=== PATIENT | male | born 1965 | race African-American/Black ===

== ENCOUNTER 2021-03-05 00:20 | Emergency (ER) | payer MEDICAID ==
[~2021-03-05] VITALS: Ht 193 cm; Wt 98.9 kg
[2021-03-05 00:28] VITALS: BP 177/94
--- NOTE | 2021-03-05 02:28 | NUR ---
Patient/Caregiver given discharge instructions and they have confirmed that they understand the instructions. Patient ambulatory with steady gait.
== END 2021-03-05 02:57 | disposition home or self-care (01) ==
LOC: ED 02:39
DX: K02.9 Dental caries, unspecified (principal)
CPT/HCPCS: 99283